=== PATIENT | male | born 1970 | race Caucasian/White ===

== ENCOUNTER → 2023-06-20 10:32 | Outpatient (REF) | payer OTHER, SELFPAY | LOC: RAD 10:32 | PROVIDERS: ATTENDING PHYSICIAN Family Medicine | DX: M54.50 Low back pain, unspecified (principal) | CPT/HCPCS: 72110 ==

== ENCOUNTER → 2023-07-17 16:42 | Outpatient (REF) | payer OTHER, SELFPAY | LOC: PAVMRI 16:42 | PROVIDERS: ATTENDING PHYSICIAN Family Medicine | DX: M54.50 Low back pain, unspecified (principal) | CPT/HCPCS: 72148 ==